=== PATIENT | female | born 1955 | race Caucasian/White ===

== ENCOUNTER → 2017-10-11 08:45 | Outpatient (CLI) | payer MEDICARE, MEDICAID, SELFPAY | PROVIDERS: Family Provider Internal Medicine; PCP Internal Medicine; Visit Provider Clinical Nurse Specialist | DX: I47.1 Supraventricular tachycardia (principal); R42 Dizziness and giddiness | CPT/HCPCS: 93225; 93226 ==

== ENCOUNTER → 2017-10-26 08:48 | Outpatient (CLI) | payer MEDICARE, SELFPAY ==
--- NOTE | 2017-10-26 08:50 | ECHOD_ITS ---
Reason For Study: SVT Procedure This was a 2D Doppler, Color Flow transthoracic echocardiogram. Exam performed in department. Left Ventricle Normal LV size. Left ventricular systolic function is normal. The estimated ejection fraction is 60 %. No evidence for diastolic dysfunction. No regional wall motion abnormalities noted. Right Ventricle Normal RV size. Normal systolic function. Atria Normal left atrium. Normal right atrium. Mitral Valve Normal mitral valve. Tricuspid Valve Normal tricuspid valve. Mild (1+) tricuspid valve insufficiency. Pulmonary artery systolic pressure is 26 mmHg. Aortic Valve Normal aortic valve. Trisinus/trileaflet aortic valve. Pulmonic Valve Normal pulmonic valve. Great Vessels Normal aortic root. The pulmonary artery is normal size. Normal inferior vena cava. Pericardium/Pleural No pericardial effusion. MMode/2D Measurements & Calculations LVIDd: 4.9 cm IVSd: 0.86 cm Ao root diam: 2.4 cm LVIDs: 3.1 cm LVPWd: 0.83 cm LA dimension: 3.6 cm RVDd: 2.2 cm FS: 36.8 % LAV(MOD-bp): 36.0 ml LA A4 area: 13.9 cm2 RA A4 area: 9.0 cm2 LAV(MOD-bp) Indexed: 18.2 ml/m2 LAV(MOD-sp2): 39.3 ml LAV(MOD-sp4): 33.3 ml Doppler Measurements & Calculations MV E max ulises: 104.6 cm/sec Lat Peak E' Ulises: 7.9 cm/sec Med Peak E' Ulises: 8.1 cm/sec MV A max ulises: 89.2 cm/sec E/E' lat: 13.3 E/E' med: 12.9 MV E/A: 1.2 Ao V2 max: 124.1 cm/sec LV V1 max: 110.6 cm/sec PA V2 max: 91.3 cm/sec Ao max P.2 mmHg LV V1 max P.9 mmHg Ao V2 mean: 84.2 cm/sec Ao mean P.2 mmHg Ao V2 VTI: 28.8 cm TR max ulises: 232.4 cm/sec TR max P.6 mmHg Interpretation Summary Normal LV size. Left ventricular systolic function is normal. The estimated ejection fraction is 60 %. No evidence for diastolic dysfunction. Ordering Physician: Michelle Hansen Referring Physician: Simi Grant Performed By: Sharda Greenfield, KIAH, RVT
== END ==
PROVIDERS: Family Provider Internal Medicine; PCP Internal Medicine; Visit Provider Clinical Nurse Specialist
DX: I47.1 Supraventricular tachycardia (principal); I38 Endocarditis, valve unspecified
CPT/HCPCS: 93306

== ENCOUNTER → 2017-12-20 10:13 | Outpatient (CLI) | payer MEDICARE, SELFPAY ==
--- NOTE | 2017-12-20 10:15 | RAD_ITS ---
STUDY: X-RAY - RIGHT KNEE REASON FOR EXAM: Bilateral knee pain. TECHNIQUE: 4 view(s) of the knee. COMPARISON: Radiographs 10/12/2015. FINDINGS: Normal visualized distal femur. Normal visualized proximal tibia and fibula. Normal proximal tibiofibular articulation. There are marginal osteophytes and joint space loss of the medial femorotibial compartment, increased since the prior study. There are small marginal osteophytes without joint space loss of the lateral femorotibial compartment. There are small marginal osteophytes and joint space narrowing of the patellofemoral articulation. There is mild lateral subluxation of the patella. There is a small joint effusion. RAD/Knee 4 or More Views IMPRESSION: Arthrosis of the medial femorotibial and patellofemoral compartments. Small joint effusion. Electronically Signed: Bebo Martinez MD at 15:10 EDT Tel , Service support ,
--- NOTE | 2017-12-20 10:15 | RAD_ITS ---
STUDY: X-RAY - LEFT KNEE REASON FOR EXAM: Bilateral knee pain. TECHNIQUE: 4 view(s) of the knee. COMPARISON: Radiographs 09/08/2014. FINDINGS: Normal visualized distal femur. Normal visualized proximal tibia and fibula. Normal proximal tibiofibular articulation. There are marginal osteophytes and joint space loss of the medial femorotibial compartment. Normal lateral femorotibial compartment. There are small marginal osteophytes with joint space narrowing of the patellofemoral articulation. There is a small joint effusion. RAD/Knee 4 or More Views IMPRESSION: Arthrosis of the medial femorotibial and patellofemoral compartments as on the prior study. Small joint effusion. Electronically Signed: Bebo Martinez MD at 14:41 EDT Tel , Service support ,
== END ==
PROVIDERS: Family Provider Internal Medicine; PCP Internal Medicine; Visit Provider Orthopaedic Surgery
DX: M25.561 Pain in right knee (principal); M25.562 Pain in left knee
CPT/HCPCS: 73564

== ENCOUNTER 2019-08-16 09:46 | Emergency (ER) | payer MEDICARE, SELFPAY ==
[2019-08-16 09:48] VITALS: BP 134/79; PULSE 74; RESP 17; TEMP 36.3; O2SAT 95; BMI 33.7
--- NOTE | 2019-08-16 10:05 | EKG12_ITS ---
Test Reason : PALPS Blood Pressure : / mmHG Vent. Rate : 064 BPM Atrial Rate : 064 BPM P-R Int : 174 ms QRS Dur : 084 ms QT Int : 406 ms P-R-T Axes : 069 012 032 degrees QTc Int : 418 ms Normal sinus rhythm Normal ECG Confirmed by DENILSON MURCIA, NIKOLAY ([id number]), acquisitions editor CHIARA WILLIAMSON ([id number]) on 08/18/2019 10:00:29 AM Referred By: TL Confirmed By:NIKOLAY OREILLY MD
--- NOTE | 2019-08-16 10:07 | ED.DCSUM_ITS ---
- ER Visit Summary Date of Service: 08/16/19 Chief Complaint: Head feels stuffy, palpitations History of Present Illness: The patient is a 64 F who tells me that her head feels stuffy. This started this morning. She cannot really quantify or describe this any further. She has had no sinus drainage or sore throat. No fevers. She did have some palpitations this morning. When this was happening she took her heart rate and it was 80. No chest pain or shortness of breath. She has a history of SVT and takes 25 mg of metoprolol at home. She did take this dose this morning. She denies any other symptoms. Physical Examination: Vital signs reviewed. HEENT exam unremarkable. Heart is regular rate and rhythm without murmurs. Lungs are clear to auscultation. Abdomen is soft and nontender. Extremities reveal no edema. Peripheral pulses are equal. Skin exam normal. Neurologic exam normal. Test Results: EKG is sinus rhythm with rate of 64. No ST changes. Labs are unremarkable except for chloride of 109 Emergency Department Course and Treatment: The patient's personnel monitor revealed a sinus rhythm. No signs of ectopy. No tachycardia. I am unclear as to why she is having this head congestion and stuffiness. I will give her Mucinex D to see if this will help. She will monitor her heart rate at home. She will continue her metoprolol. Follow-up with Treatment Plan: [] Disposition: Discharge Impression: Palpitations, head congestion This note was generated with Branch dictation software. It may contain incorrect words, spelling, and punctuation that were not noted in review of the chart prior to signing ED Disposition - Plan for ED Patient: Referrals: Simi Grant MD [Primary Care Provider] -
[2019-08-16 10:53] LABS: Absolute Lymphocyte Count 1.26 X10^3/uL (0.83-4.51); Absolute Neutrophil Count 3.4 X10^3/uL (2.0-7.7); Basophil# 0.04 X10^3/uL; Basophil% 0.7 % (0-1); Eosinophil# 0.15 X10^3/uL; Eosinophils% 2.8 % (0-5); Hematocrit 43.3 % (37-47); Hemoglobin 13.6 g/dL (12.0-15.0); Lymphocyte # 1.26 X10^3/ul (4.0); Lymphocyte % 23.6 % (19-41); Mean Corp Hgb Conc 31.4 g/dL (32-36); Mean Corpuscular Hgb 29.1 pg (27.0-32.0); Mean Corpuscular Volume 92.7 fL (81-99); Mean Platelet Vol. 11.3 fl (6.2-12.0); Monocyte# 0.49 X10^3/uL; Monocyte% 9.2 % (0-10); NRBC Flagged by Analyzer 0 % (0-5); Neutrophil # 3.38 X10^3/uL (2.7-7.7); Neutrophil % 63.3 % (47-70); Platelet Count 205 K/mm3 (150-450); RBC Distribution Width CV 13.2 % (11.6-14.6); RBC Distribution Width SD 44.9 fl (35.1-43.9); Red Blood Count 4.67 M/mm3 (4.2-5.4); White Blood Count 5.3 K/mm3 (4.4-11.0)
[2019-08-16 11:09] LABS: Anion Gap 7 (5-15); BUN 15 mg/dL (7-18); BUN/Creat Ratio 22.1 RATIO (10-20); Calcium,Total 9.5 mg/dL (8.5-10.1); Chloride 109 mmol/L (98-107); Creatinine, Serum 0.68 mg/dL (0.55-1.02); EST Glomerular Filtration Rate 93 mL/min (>60); Est Glom Filt Rate - Afr Amer 113 mL/min (>60); Estimated Creatinine Clearance 77.19 ml/min; Glucose 95 mg/dL (74-106); Potassium 4.1 mmol/L (3.5-5.1); Sodium Level 143 mmol/L (136-145)
--- NOTE | 2019-08-16 11:12 | DCINST.ED_ITS ---
ED Disposition - Plan for ED Patient: Disposition: Home or Assisted Living Instructions: Palpitations Prescriptions: Guaifenesin/Pseudoephedrne HCl [Guaifenesin-Pse ER 600-60 mg] 1 ea PO BID #14 tab.er.12h Transmission Status: Pending to [facility] Referrals: Simi Grant MD [Primary Care Provider] - Additional Instructions: Your prescription was electronically transferred to [facility]
== END 2019-08-16 11:34 | disposition home or self-care (01) ==
PROVIDERS: Emergency Provider Emergency Medicine; Family Provider Internal Medicine; PCP Internal Medicine
DX: R00.2 Palpitations (principal); I47.1 Supraventricular tachycardia; E03.9 Hypothyroidism, unspecified; F32.9 Major depressive disorder, single episode, unspecified; Z79.899 Other long term (current) drug therapy
CPT/HCPCS: 80048; 84484; 85025; 93005; 99284; A4216

== ENCOUNTER 2020-09-13 08:45 | Emergency (ER) | payer MEDICARE, SELFPAY ==
[2020-09-13 08:46] VITALS: BP 148/80; PULSE 80; RESP 18; TEMP 36.4; O2SAT 97; BMI 33.3
[2020-09-13] MEDS: Ketorolac 15 MG/ML Vial IM (09:23)
[2020-09-13] MEDS: cycloBENZAPRine HCl 10 MG Tablet 5 MG PO (09:26)
--- NOTE | 2020-09-13 09:51 | ED.VIS.GEN ---
History of Present Illness Chief Complaint: Back Informant: Patient Narrative: 65-year-old female presents with right back and buttock pain. States that she was reaching into the refrigerator yesterday to get some milk and began having pain in her right buttock. States it is aching worse with movement. Denies any numbness or tingling in her lower extremities. Denies any fever, chills, saddle anesthesia, loss of bowel or bladder. Past Medical History - Allergies and Home Meds Allergies/Adverse Reactions: Allergies No Known Allergies Allergy (Verified 09/13/20 08:48) Primary Care Physician: Simi Grant MD [Primary Care Provider] - Prior records reviewed: Yes Past Medical History: - - HTN, hypothyroidism Surgical History: noncontributory Lives: Spouse/ Significant Other Smoking Status: Never smoker Alcohol: None Drugs: None Review of Systems General: Denies: Chills, Fever, Sweats Eyes: Denies: Visual changes - bilaterally, Diplopia ENT: Denies: Rhinorrhea, Sore throat Cardiovascular: Denies: Chest pain, Palpitations Respiratory: Denies: Dyspnea, Cough, Dyspnea on exertion Gastrointestinal: Denies: Abdominal pain, Nausea, Vomiting, Diarrhea, Melena, Hematochezia Genitourinary: Denies: Dysuria, Hematuria, Frequency Musculoskeletal: Reports: Back pain. Denies: Extremity Pain Skin: Denies: Rash, Wounds Neurological: Denies: Headache, Weakness, Numbness Physical Exam Vital Signs/Narrative: Vital Signs Temp Pulse Resp BP Pulse Ox 09/13/20 08:46 97.6 F L 80 18 148/80 H 97 Inital Vital Signs reviewed: Yes General: Well nourished, Well developed, No Acute Distress Head: Normocephalic, Atraumatic Eyes: Perrl, EOMI ENT: Moist mucous membranes, No rhinorrhea Neck: Supple, Nontender Cardiovascular: Regular rate, Regular rhythm, No murmurs Respiratory: No distress, CTA bilaterally, Chest nontender Abdomen: Soft, Nontender, Nondistended, Normal bowel sounds Back: Nontender, Normal Inspection Extremities: No edema, - - TTP over the right piriformis. Full range of motion at the hip as well as knee. No overlying skin changes. Skin: Normal color, No rash Neurological: Alert, Oriented x3, Cranial nerves II-XII grossly intact, Normal Strength, Normal Sensation Psychological: Normal affect, Normal Mood Diagnostic/Tx/Re-eval - Medical Decision Making Appears well and nontoxic. Vital signs within normal limits. Patient has sciatica. Was given muscle relaxer as well as intramuscular Toradol. Patient had improvement of her symptoms during her stay. She will be given Flexeril for home as well as Naprosyn. Asked to return with new or worsening symptoms. Patient agreeable and stable at time of discharge. Impression: 1. Right sciatica ED Disposition - Plan for ED Patient: Disposition: Home or Assisted Living Instructions: ED Sciatica Prescriptions: cycloBENZAPRine HCl [Flexeril] 5 mg PO TID PRN #5 tab PRN Reason: Muscle Spasm Prescription Printed Naproxen [Naprosyn] 500 mg PO BID #14 tab Prescription Printed Referrals: Simi Grant MD [Primary Care Provider] - 2 Days
[2020-09-13 10:00] VITALS: PULSE 81; RESP 18; O2SAT 99
--- NOTE | 2020-09-13 10:01 | ED.RN ---
THIS NURSE REVIEWED D/C INSTRUCTIONS WITH PT. PT VERBALIZED UNDERSTANDING OF INSTRUCTIONS. PT DENIES FURTHER NEEDS OR QUESTIONS AT THIS TIME. PT AMBULATES FROM ROOM ON OWN WITHOUT ASSISTANCE FROM STAFF
== END 2020-09-13 10:01 | disposition home or self-care (01) ==
PROVIDERS: Emergency Provider Emergency Medicine; PCP Internal Medicine
DX: M54.31 Sciatica, right side (principal); I10 Essential (primary) hypertension; E03.9 Hypothyroidism, unspecified; Z79.899 Other long term (current) drug therapy
CPT/HCPCS: 96372; 99283

== ENCOUNTER 2020-10-19 14:11 | Outpatient (RCR) | payer MEDICARE, SELFPAY ==
[2020-10-19] MEDS: COVID-19 VACC, MRNA(PFIZER)/PF 30 MCG/0.3 ML SYRINGE IM (08:24)
[2020-11-09] MEDS: COVID-19 VACC, MRNA(PFIZER)/PF 30 MCG/0.3 ML SYRINGE IM (08:21)
== END 2021-01-11 23:59 ==
LOC: IMMUN 14:11
PROVIDERS: PCP Internal Medicine; Visit Provider Family Medicine
DX: Z23 Encounter for immunization (principal)
CPT/HCPCS: 0001A; 0002A; 91300

== ENCOUNTER 2021-10-25 11:59 | Observation (INO) | payer MEDICARE, SELFPAY ==
--- NOTE | 2021-10-13 08:37 | EKG12_ITS ---
Test Reason : PRE OP Blood Pressure : / mmHG Vent. Rate : 069 BPM Atrial Rate : 069 BPM P-R Int : 180 ms QRS Dur : 070 ms QT Int : 382 ms P-R-T Axes : 083 067 073 degrees QTc Int : 409 ms Normal sinus rhythm Normal ECG Confirmed by DAYDAY MURCIA, CHRISTOPHE ([id number]), scientific editor CHIARA WILLIAMSON ([id number]) on 10/14/2021 7:51:20 AM Referred By: Josep Lim Confirmed By:CHRISTOPHE NAYLOR MD
[2021-10-13 09:12] LABS: Absolute Lymphocyte Count 1.16 X10^3/uL (0.83-4.51); Absolute Neutrophil Count 3.2 X10^3/uL (2.0-7.7); Basophil# 0.05 X10^3/uL; Eosinophil# 0.11 X10^3/uL; Eosinophils% 2.2 % (0-5); Hematocrit 44.4 % (37-47); Hemoglobin 14.8 g/dL (12.0-15.0); Lymphocyte # 1.16 X10^3/ul (0.83-4.51); Lymphocyte % 23.7 % (19-41); Mean Corp Hgb Conc 33.3 g/dL (32-36); Mean Corpuscular Hgb 30.8 pg (27.0-32.0); Mean Corpuscular Volume 92.5 fL (81-99); Mean Platelet Vol. 11.4 fl (6.2-12.0); Monocyte# 0.37 X10^3/uL; Monocyte% 7.6 % (0-10); NRBC Flagged by Analyzer 0 % (0-5); Neutrophil # 3.19 X10^3/uL (2.7-7.7); Neutrophil % 65.3 % (47-70); Platelet Count 245 K/mm3 (150-450); RBC Distribution Width CV 13.1 % (11.6-14.6); RBC Distribution Width SD 44.5 fl (35.1-43.9); White Blood Count 4.9 K/mm3 (4.4-11.0)
[2021-10-13 09:34] LABS: Anion Gap 4 (5-15); BUN 16 mg/dL (7-18); BUN/Creat Ratio 23.1 RATIO (10-20); Calcium,Total 9.1 mg/dL (8.5-10.1); Chloride 107 mmol/L (98-107); Creatinine, Serum 0.69 mg/dL (0.55-1.02); EST Glomerular Filtration Rate 90 mL/min (>60); Est Glom Filt Rate - Afr Amer 109 mL/min (>60); Glucose 112 mg/dL (74-106); Potassium 4.1 mmol/L (3.5-5.1); Sodium Level 139 mmol/L (136-145)
[2021-10-13 09:43] LABS: International Normalized Ratio 1.1; Prothrombin Time (Protime)PT. 13.2 SECONDS (11.7-14.9)
[2021-10-13 09:44] LABS: Partial Thromboplast Time 31.6 Seconds (24.1-36.2)
[2021-10-13 09:48] LABS: Magnesium 1.9 mg/dL (1.6-2.6); Thyroid Stim Hormone (TSH) 2.25 uIU/mL (0.358-3.74)
[2021-10-14 13:41] LABS: Fructosamine 233 umol/L (0-285)
[2021-10-25] VITALS (10 sets, daily range): BP systolic 98–143; BP diastolic 51–82; PULSE 62–82; RESP 16–18; TEMP 36.2–36.7; O2SAT 97–100; BMI 33.0
[2021-10-25] MEDS: Lactated Ringers 1,000 ML 125 ML IV ×3 (06:45→14:28)
[2021-10-25] MEDS: Scopolamine 1mg/72hr Patch 1 PATCH TD (06:46)
[2021-10-25] MEDS: Celecoxib 200 MG Capsule 400 MG PO (06:47)
[2021-10-25] MEDS: Acetaminophen 500 MG Tablet 1000 MG PO ×3 (06:47→21:41)
[2021-10-25] MEDS: Gabapentin 600 MG Tablet PO (06:47)
[2021-10-25 07:06] LABS: Bedside Glucose 78 mg/dL (74-106)
--- NOTE | 2021-10-25 07:12 | HP.PCM_ITS ---
History and Physical Date of Admission: 10/25/21 Date of Service: 09/26/21 MR#:[id number]: YULIANA GAGE #:[id number]:[id number] Provider:Dr. Josep Lim DOAge/Sex: 66/F [facility]:Signed Intake Vital Signs 09/26/21 10:19 Height 5 ft 5 in Weight: 203 lb BMI 33.7 Intake Visit Reasons: Bilat knees Allergies nickel Allergy (Severe, Verified 09/26/21 10:15) swelling, hives, rash Medications citalopram 10 mg PO DAILY 09/09/14 [History Confirmed 09/26/21] levothyroxine 50 mcg PO DAILY 09/09/14 [History Confirmed 09/26/21] metoprolol succinate 25 mg PO DAILY 09/09/14 [History Confirmed 09/26/21] cholecalciferol (vitamin D3) 2,000 unit PO DAILY 08/16/19 [History Confirmed 0 09/26/21] cyclosporine 1 ea OP BID 08/16/19 [History Confirmed 09/26/21] naproxen sodium 220 mg capsule 220 mg PO BID 09/26/21 [History Confirmed 09/26/21] trazodone 50 mg tablet 50 mg PO tab 09/26/21 [History Confirmed 09/26/21] zinc sulfate-vitamin C 200 mg-100 mg tablet tab PO 09/26/21 [History Confirmed 09/26/21] [facility] Medical History (Updated 09/26/21 @ 11:[address] Josep Lim DO) History of tachycardia HTN (hypertension) Surgical History (Updated 09/26/21 @ 10:21 by Ayala Saleem) History of arthroscopy of both knees Hx of hysterectomy Hx of tonsillectomy Hx of vein stripping Family History (Updated 09/26/21 @ 10:22 by Ayala Saelem) Sister Cancer Father Diabetes Myocardial infarction Brother Heart disease Social History (Updated 09/26/21 @ 10:21 by Ayala Saleem) Smoking Status: Never smoker alcohol intake: never HPI Bilat knees Details: Parts of this documentation were recorded by a scribe, this documentation accurately reflects the service provided and the decisions made by me, Dr. Josep Lim DO 09/26/21 0748Vladimir GAGE is a 66 year old F NEW patient here today for BL knee pain that she has been having since 2012 and the pain has worsened. SHe had TKA scheduled last year at [facility] but this was canceled d/t her husbands health and his passing. SHe states that she wishes to disscuss surgery today. She has had knee arthroscopies in 2012 and 2015, dr. harris preformed one and the Dr. Bolanos preformed the other. She feels that her left knee is worse than the right knee. She states that her pain is increased with ascending stairs. She has anterior achiness and she feels that just below her knee cap there is a thigh feeling like it will snap. Denies numbness, tingling or other associated symptoms. She has many injections in her BL Knees including visco injections and steroid injections. Her last injection were in [address] Harris. She has had PT in the past. Patient states that she does have BL lower extremity brown lesions which the tailings man told her was from Zhaopin. SHe has a nickel allergy and the tailings man told her many years ago it was the worst allergy they have ever seen. Ortho Exam General General: Yes no acute distress Neurologic: Yes alert and Yes oriented x3 Psychologic: Yes reasonable and appropriate Right Knee Skin/Wound: No erythema, No ecchymosis and No swelling Homans Sign: No Knee ROM: Yes ROM-Extension -20 to 0 and No ROM-Flexion 0-140 (118) Examination: Yes Med jt line tenderness, Yes Lat jt line tenderness and Yes Crepitus Stability: NML: Anterior Drawer, NML: Posterior Drawer, NML: Valgus 30 and NML: Varus 30 Patella Translation: 1 Apprehension with Lateral Translation: No Patella Grind: Yes KNEE: no joint effusion 8mm circular brown lession on BL legs Left Knee Skin/Wound: No ecchymosis, No erythema and No swelling Homans Sign: No Knee ROM: Yes ROM-Extension -20 to 0 and No ROM-Flexion 0-140 (118) Examination: Yes med jt line tenderness, Yes Lat jt line tenderness and Yes Crepitus Stability: NML: Anterior Drawer, NML: Posterior Drawer, NML: Valgus 30 and NML: Varus 30 Patella Translation: 1 Patella Grind: Yes KNEE: no patellar instability no joint effusion Supplemental Info 09/26/2021 x-ray left knee: Advanced patellofemoral arthrosis ,moderate to severe medial joint space narrowing with large bone spurs medial and lateral compartment 09/27/2021 x-ray right knee:Advanced patellofemoral arthrosis ,moderate to severe medial joint space narrowing with large bone spurs medial and lateral compartment Coding Level of Care Code Off vis,new,level 3 Diagnoses Right knee DJD M17.11 Osteoarthritis type: primary Degenerative joint disease of knee, left M17.12 Osteoarthritis type: primary Nickel allergy Z91.09 Assessment and Plan Assessment and Plan (1) Right knee DJD: Status: Acute Qualifiers: Osteoarthritis type: primary Qualified Code(s): M17.11 - Unilateral primary osteoarthritis, right knee (2) Degenerative joint disease of knee, left: Status: Acute Qualifiers: Osteoarthritis type: primary Qualified Code(s): M17.12 - Unilateral primary osteoarthritis, left knee (3) Nickel allergy: Status: Acute Plan - Dr. Josep Lim, DO: Obtained X-rays of patient's BL knee. Personally reviewed x-rays. There is no obvious fracture, dislocation, or lucency noted. Patient educated that she has significant OA of the BL knees. history of Severe nickel allergy. Educated that the [place] knee is a titanium allow with trace nicikle . Educated that studies show the [place] knee vs holloway and nephew implant without nickel shows that there is no increased risk to revision, however she feels more comfortable with the holloway nephew selin free knee. Educated that if she wishes to use the holloway and nephew implant there can be a different feel to the knee and the robot would not be an option. She wishes to have the holloway and nephew implant d/t the risk of allergy. Risks, benefits and alternatives of surgery reviewed including but not limited to bleeding, infection, nerve, artery and/or tissue damage, fracture, VTE, mechanical feel of the knee, continued pain, stiffness and expected post-operative course. She will be walking right after surgery, will have a walker then progress to a cane. She can take up to 2 years to fully recover but she should be happy she had the replacement at 3 months post op. Since she does live along it is recommended that she stays the night for safely concerns. She wishes to proceed with left total knee arthroplasty with the Holloway and Nephew implant. WIshes to have surgery 10/25/2021. We did discuss CHON steiner and she does wish to proceed with that as well. Follow up in or sooner if pain, swelling, numbness or associated symptoms, or concerns develop. All questions answered. Patient in agreement of plan. Plan Details Other Orders: Orders: Knee 4 or More Views Today M25.561, M25.562 Knee 4 or More Views Today M25.561, M25.562 09/26/21 1151<Electronically signed by Josep Lim DO>Date Josep Lim DO I have re-examined the patient. There are no clinical changes since date of exam
--- NOTE | 2021-10-25 08:30 | CYST_PTH ---
PATIENT: YULIANA GAGE LOC: MS3 U#:[id number] AGE/SX: 66/F ROOM: AR315 RE10/25/[address]: Dr. Josep Lim DO : 1955 BED: 1 DIS: 10/26/2021 SPEC #: [id number] RECD: 10/25/21 12:51 STATUS: OSMANY CHLOÉ #: [id number] COREY: 10/25/21 08:[address]: Josep Lim DEPT: SURGICAL PATHOLOGY RECD BY: Ying Jordan ENTERED: 10/25/21 13:31 SP TYPE: Cyst OTHR DR: Dr. Simi Grant MD Tissues: A - CYST B - Knee, NOS Procedures: Decalcification bone/plaque Special Stain Group II Surgery Specimen Level IV Iron Stain (control) HEADER OPERATION: ERAS, total knee replacement PRE-OP DIAGNOSIS: Degenerative joint disease of left knee; primary osteoarthritis left knee TISSUE SUBMITTED: A ? Left knee posterior capsule cyst, B ? Left femoral and tibial bone MICROSCOPIC DIAGNOSIS A. 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 See comment. B. Left femoral and tibial bone, total knee replacement/resection: Pieces of bone with degenerative osteoarthritic changes. SJ:rg 10/28/2021 COMMENT A. No obvious cyst is identified. Iron stain with matched control is used in the evaluation of the specimen and shows iron laden macrophages (siderophages). MICROSCOPIC DESCRIPTION Slides are reviewed. GROSS DESCRIPTION A - Received in fixative is one container labeled with the patient's name and designated left knee posterior capsule cyst. The specimen consists of a lewis-pink cyst measuring 2.8 x 1.5 x 0.7 cm. Sections reveal red-yellowish cut surfaces. No obvious cyst is identified. The entire specimen is submitted in two cassettes. B - Received is one container designated left femoral and tibial bone. The specimen consists of multiple fragments of lewis-yellow bone measuring in aggregate 11 x 11 x 3 cm. No soft tissue is identified. A number of bony fragments contain articular surfaces consistent with tibial plateau and femoral condyle and displaying prominent osteophyte formation, eburnation, and bone erosion. Analysis Lead sections are submitted in one cassette after decalcification. / ELMO:robin 10/25/2021 TC:5 CPT: 51928 x2, 25796, 28707
[2021-10-25] MEDS: Cefazolin 2 GM in 0.9% Normal Saline 100 ML IV (09:44)
[2021-10-25] MEDS: TXA 1000mg in NS100 100ml (IVPB at Incision) 660 MG IV (09:53)
[2021-10-25] MEDS: dexAMETHasone 10 MG/ML Vial IV (10:00)
[2021-10-25] MEDS: Epinephrine (1 mg/ml) 1 MG/ML VIAL (11:10)
[2021-10-25] MEDS: 0.9% Normal Saline (Pres. free 10 ML Vial (11:10)
[2021-10-25] MEDS: Bupivacaine Mpf 0.5% 30 ML VIAL (11:10)
[2021-10-25] MEDS: Betamethasone/Betamethasone 30 MG/5 ML Vial (11:10)
[2021-10-25] MEDS: TXA 1000mg in NS100 100ml (IVPB at Closure) 660 MG IV (11:27)
--- NOTE | 2021-10-25 12:02 | OP.PCM_ITS ---
Report of Operation Date of Procedure: 10/25/21 Description of Surgical Findings:: Preoperative diagnosis: Left knee DJD + nickel allergy Postoperative diagnosis: Same Procedure: Left total knee arthroplasty Implant: [employer]hew Oxinium knee journey 2 CR femur size 3 tibial baseplate size 3 left polyethylene size 9 mm CR patella 35 mm symmetric Anesthesia: Spinal with adductor canal block Tourniquet time: 59 minutes total at 300 mmHg 46 minutes up down for a period of time and then back up for the remainder during cementing Complications: None Condition: Stable to PACU Estimated blood loss: 200 cc Indication for procedure: This is a 66-year-old female with long standing degenerative joint disease of the knee who has failed conservative treatment and wished to proceed with elective total knee arthroplasty. Risk benefits and alternatives were reviewed including; risk of bleeding, infection, nerve artery and tissue damage, continued pain, postoperative stiffness, venous thromboembolism, need for postoperative rehabilitation, mechanical feel to the knee, and expected postoperative course. 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 The operative extremity was identified by both patient and physician and was marked. Patient was met by anesthesia. An adductor canal block was placed by anesthesia postoperatively the patient was brought back to the operating room on a wheeled cart and transferred to the operating table in the supine position. Anesthesia was started. A well-padded tourniquet was placed on the operative extremity. The patient was prepped and draped in the usual sterile fashion. A timeout was called to ensure the proper patient procedure and extremity were being contemplated. An Esmarch was used to exsanguinate the extremity. The tourniquet was inflated. A 10 blade scalpel was used to make a midline incision down through the skin and subcutaneous tissue. Skin retractors placed. Bovie was used to perform meticulous hemostasis. full-thickness flaps were elevated medial and lateral along the joint capsule. A deep blade scalpel was used to perform a medial parapatellar arthrotomy. The knee was brought to full extension. A Bovie was used to release the soft tissues off the most proximal aspect of the medial tibial plateau a three-quarter inch curved osteotome was also used for this process. The infrapatellar fat pad was excised. The fat pad was excised partially anterior lateral portion the anterior medial was elevated from the femur. the patella was everted. The knee was brought into flexion. An intramedullary drill was used followed by flexible intramedullary guide paulo. The distal femoral cutting block was placed and set to remove 10 mm of bone and 5 degrees of valgus. The block was secured with pins and an oscillating saw was used to complete the distal femoral cut. During this, and all bony cuts retractors were used to protect the collateral ligaments. At this point a femoral sizer was used to measure the AP dimension of the femur. The sizer block was pinned parallel to the epicondylar access for external rotation. The sizing block was removed and the appropriately sized 4-in-1 cutting block was placed over the previously made pinholes. It was checked with an padilla wing and the block was secured with pins. An oscillating saw was used to complete the chamfer cut anteriorly followed by the anterior cut anterior cut followed by the posterior cut followed by the posterior chamfer cut followed by the anterior chamfer cut. The block was removed as well as the fragments. A ronguer was used to remove excess osteophytes. Her intramedullary canal was very anterior and was partially exposed superiorly on the anterior femur. the medial and lateral meniscus were excised as well as the ACL. There was noted to be a cyst in the posterior medial capsule which was excised and sent for pathology at this point a PCL retractor was placed and an intramedullary drill was passed down the tibial canal followed by a solid intramedullary guide paulo. The tibial cutting block was attached and set to remove 9 mm of bone from the high side. This was checked with an external alignment drop paulo for slope and tilt. It was pinned into place. An oscillating saw was used to complete the tibial plateau cut and the block was removed. A large osteotome was used to elevate the fragment and a Meng and a Bovie were used to free the fragment from the surrounding soft tissue. A rongeur was once again used to remove osteophytes a lamina long filler cigar roller machine was used to evaluate the posterior capsular structures. A three-quarter inch curved osteotome was used to remove posterior osteophytes. A spacer block was inserted in both extension and flexion to ensure adequate spacing. Trials were inserted full extension and flexion were achieved in varus and valgus stability throughout range of motion were seen, balancing techniques were performed. At this point the attention was turned towards the patella. A caliper was used to ensure sufficient bone stock to remove 10 mm of bone. A reamer was used to perform this task. Lug holes were made for the appropriate-sized patella. The patella trial was inserted and there was good patellar tracking with knee range of motion. The tibial baseplate was allowed to float into rotation and was marked on the tibial plateau with a Bovie. Lug holes were made in the femur and trials were removed. The tibial baseplate was then sized and its preparation was completed with a fin punch. The knee was thoroughly irrigated. A posterior capsular injection was performed with our standard cocktail. The knee was brought into flexion and irrigated again. The tibial baseplate was cemented. Excess cement was removed with curettes. The polyethylene component was inserted. The femoral component was cemented. The knee was brought into full extension and placed on a bump. The patellar component was cemented. At this point a Betadine rinse was placed and thoroughly irrigated after a few minutes. This was followed by an Iricept rinse which was allowed to sit for 1 minute and then thoroughly irrigated.At this point all gloves were changed. The knee was thoroughly irrigated the joint capsule was closed with #1 Ethibond. Tourniquet was let down followed by 0 Vicryl and 2-0 Vicryl in the subcutaneous tissues. followed by brook in the skin. Dressing was applied in the form of Mepilex silver dressing web roll and an Lalo wrap from the foot to the groin. The patient tolerated the procedure well, all counts were correct patient was brought back to the PACU in stable condition.
--- NOTE | 2021-10-25 12:40 | RAD_ITS ---
STUDY: X-RAY - LEFT KNEE REASON FOR EXAM: Female, 66 years old. Post op -- AP and Lateral xray of operative knee in PACU TECHNIQUE: 2 view(s) of the knee. COMPARISON: Comparison is made with prior study dated 09/26/2021. FINDINGS: Normal visualized distal femur. Normal visualized proximal tibia and fibula. Normal proximal tibiofibular articulation. The patient is status post total knee replacement. There is good alignment. Postoperative soft tissue changes. RAD/Knee 1 or 2 Views IMPRESSION: Status post total knee replacement. There is good alignment. Postoperative soft tissue changes. Electronically Signed: Dylan Hammond MD at 12:57 EDT ,
[2021-10-25] MEDS: Cefazolin 1 GM/50 ML BAG IV ×2 (14:20→21:30)
[2021-10-25] MEDS: Senna/Docusate Sodium 1 Tablet 2 TABLET PO (21:30)
[2021-10-25] MEDS: Lactated Ringers 1,000 ML 15 ML IV (23:00)
[2021-10-26 01:27] VITALS: BP 122/69; PULSE 75; RESP 16; TEMP 36.7; O2SAT 94
[2021-10-26 05:27] VITALS: BP 105/65; PULSE 71; RESP 16; TEMP 36.6; O2SAT 97
[2021-10-26] MEDS: Cefazolin 1 GM/50 ML BAG IV (05:42)
[2021-10-26] MEDS: Acetaminophen 500 MG Tablet 1000 MG PO (05:43)
[2021-10-26] MEDS: Levothyroxine 50 MCG Tablet PO (05:44)
[2021-10-26] MEDS: APIXABAN 2.5 MG TABLET PO (05:44)
[2021-10-26] MEDS: 0.9% Saline Lock 10 ML Syringe IV (05:46)
[2021-10-26 06:14] LABS: Hemoglobin 11.5 g/dL (12.0-15.0); Mean Corp Hgb Conc 32.9 g/dL (32-36); Mean Corpuscular Hgb 30.7 pg (27.0-32.0); Mean Corpuscular Volume 93.3 fL (81-99); Mean Platelet Vol. 12.4 fl (6.2-12.0); Platelet Count 226 K/mm3 (150-450); RBC Distribution Width SD 44.5 fl (35.1-43.9); Red Blood Count 3.75 M/mm3 (4.2-5.4)
[2021-10-26 06:45] LABS: Anion Gap 3 (5-15); BUN 11 mg/dL (7-18); BUN/Creat Ratio 19.1 RATIO (10-20); Calcium,Total 8.8 mg/dL (8.5-10.1); Chloride 110 mmol/L (98-107); Creatinine, Serum 0.58 mg/dL (0.55-1.02); EST Glomerular Filtration Rate 112 mL/min (>60); Est Glom Filt Rate - Afr Amer 136 mL/min (>60); Estimated Creatinine Clearance 88.18 ml/min; Glucose 132 mg/dL (74-106); Potassium 4.2 mmol/L (3.5-5.1); Sodium Level 140 mmol/L (136-145)
[2021-10-26 07:19] VITALS: BP 113/59; PULSE 66; RESP 16; TEMP 36.8; O2SAT 97
--- NOTE | 2021-10-26 07:21 | PCM.PN.ORT ---
Subjective Subjective Seen and examined doing well pain controlled did have nausea lightheadedness yesterday but resolved today no other complaints Objective Data Objective Data Vital Signs: Vital Signs Temp Pulse Resp BP Pulse Ox 97.9 F 71 16 105/65 97 10/26/21 05:27 10/26/21 05:27 10/26/21 05:27 10/26/21 05:27 10/26/21 05:27 Oxygen Flow Rate (L/min) 4 Oxygen Delivery Method Room Air Weight: 201 lb 15.095 oz Body Mass Index (BMI) 33.0 Intake & Output: Intake and Output for Last 24 Hours 10/24/21 10/25/21 10/26/21 23:59 23:59 23:59 Intake Total 4035.5 / 4035.5 50 / 50 Output Total 600 / 600 Balance 3435.5 / 3435.5 50 / 50 Lab / Micro Data Result Diagrams: 10/26/21 05:19 10/26/21 05:19 Labs: Laboratory Results - last 24 hr 10/26/21 05:19: WBC 13.0 H, RBC 3.75 L, Hgb 11.5 L, Hct 35.0 L, MCV 93.3, MCH 30.7, MCHC 32.9, RDW Std Deviation 44.5 H, RDW Coeff of Clarence 13.0, Plt Count 226, MPV 12.4 H 10/26/21 05:19: Sodium 140, Potassium 4.2, Chloride 110 H, Carbon Dioxide 27.0, Anion Gap 3 L, BUN 11, Creatinine 0.58, Estim Creat Clear Calc 88.18, Est GFR (MDRD) Af Amer 136, Est GFR (MDRD) Non-Af 112, BUN/Creatinine Ratio 19.1, Glucose 132 H, Calcium 8.8 Micro: Microbiology 10/24/21 09:40 Interface Orders SARS-CoV-2 Antigen (Rapid) - Final 10/13/21 08:49 Swab (Method) Nasal Screen MRSA/MSSA - Final Radiography Diagnostic Testing: Radiology Impression Knee X-Ray 10/25/21 12:40 IMPRESSION: Status post total knee replacement. There is good alignment. Postoperative soft tissue changes. Electronically Signed: Dylan Hammond MD at 12:57 EDT , Physical Exam Const alert and oriented x3 General Appearance: cooperative Extremity Extremity Narrative: Left lower extremity dressing clean dry intact compartments soft neurovascular intact Assessment & Plan Assessment/Plan (1) Orthopedic aftercare: PLAN: Postop day #1 left total knee arthroplasty PT OT weightbearing as tolerated Patient doing better this morning will discharge home after a.m. physical therapy if continues to do well. Eliquis 2.5 mg twice daily for 2 weeks Tylenol oxycodone for pain Encourage knee range of motion Follow-up in 2 weeks Begin shower 72 hours postop
--- NOTE | 2021-10-26 07:23 | EX.PCM.DISCH ---
Discharge Instructions Diet Discharge Diet: No restrictions Activity Weight Bearing Status: Weight bearing as tolerated Dressing / Incision Additional Dressing/Incision Instructions:: Ice and elevate one week while not ambulating. Ambulation is encouraged. Weightbearing as tolerated. Use assistive devise for stability. Encourage FULL knee extension and flexion 1 time EVERY time you get up and down and MULTIPLE times per day. No showering 72 hours after surgery. Begin showering postop day #3. Remove the dressing prior to shower and gently wash with warm water and antibacterial soap then pat dry and place abdominal pad (or plain gauze) and KETAN hose over top. This is to be done daily. Do not submerge for 3 weeks. If not showering daily after the initial 72 hours then you must clean incision and change dressing daily. Do not allow animals near the incision area. Keep clean. Follow anticoagulation recommendations as prescribed. Do not take any NSAIDs while on blood thinner. Do not take any additional narcotic pain medication other than what was prescribed on your surgery day without discussing with physician. Narcotic medication can be addictive. Do not drink alcohol while taking narcotics. Start physical therapy. If you are not currently scheduled for physical therapy or you are unsure of appointment time please call office [facility] to arrange. Call Dr. Lim with any concerns. Follow Up Care Test Results: Test results from this visit will be discussed in further detail at your follow-up appointment, if applicable. Discharge Plan Admission Admit Date/Time: 10/25/21 11:59 Attending Provider: Josep Lim Primary Care Provider: Simi Grant Discharge Orders/Prescriptions Prescriptions: New Eliquis 2.5 mg Tablet 2.5 mg PO BID Qty: 28 RF: 0 oxycodone 5 mg tablet 5 - 10 mg PO Q4H PRN (Reason: pain) 7 Days Qty: 60 RF: 0 acetaminophen [acetaminophen] 500 MG tablet 1,000 mg PO Q6H PRN Qty: 100 RF: 0 Continued citalopram 10 MG tablet 10 mg PO DAILY RF: 0 levothyroxine 50 MCG tablet 50 mcg PO DAILY RF: 0 metoprolol succinate 25 MG tablet 25 mg PO DAILY RF: 0 cyclosporine 1 EACH dropperette 1 ea OP BID RF: 0 cholecalciferol (vitamin D3) 2,000 UNIT tablet 2,000 unit PO DAILY RF: 0 Thera-Tabs Tablet 3 tab PO DAILY RF: 0 Elderberry Zinc Vit C 90-15 mg Lozenge 1 devin PO DAILY RF: 0 Discontinued trazodone 50 mg tablet 50 mg PO PRN PRN (Reason: Sleep) RF: 0 naproxen sodium [Aleve] 220 mg capsule 220 mg PO PRN PRN (Reason: Pain) RF: 0 Referrals / Follow Up: Simi Grant MD [Primary Care Provider] -
[2021-10-26] MEDS: Cholecalciferol (VIT D3) 25 MCG TABLET (1,000 UNITS) 50 MCG PO (07:35)
[2021-10-26 10:35] VITALS: PULSE 66
[2021-10-26] MEDS: Metoprolol(XL)Succ 25 MG Tablet PO (10:35)
--- NOTE | 2021-10-26 10:35 | CASEMGMT ---
RN DAVE CERTIFIED PROCEDURAL CODER CM to room to meet with patient for initial transition planning/care coordination assessment. AMINATA ACOSTA introduced self and role at [facility]. Pt voices understanding and consents to assessment at this time. Pt sitting up in recliner chair in no distress at this time. Pt is A/O at this time and answers all questions appropriately. Care providers, pharmacy, and demographics verified/updated at this time. PCP: Dr Grant Specialists: Dr Lopez Preferred Pharmacy: [facility] Retail Insurance: [facility] Prescription Benefit: Yes Living Will/HPOA: Pt thinks she completed these Apr, 2021, with the mergers and acquisitions attorney after her , but she is insure. She plans to check w/her mergers and acquisitions attorney to inquire about this. LNOK: 2 sons: Peter and Los. Sister, Coleen Prado. Living Arrangements: Lives alone in one-story home w/basement. Washer and dryer are now on 1st floor. 3 steps to enter home. Pt states therapy to work w/her and steps this afternoon. Pt's sister and other family plan to stay w/her over the new few days and through the weekend. After that, a dtr-in-law lives close and plans to check on her daily. Pt was independent w/ADL's and IADL's prior to surgery. Transportation: Pt states drives self and states no transportation concerns at this time. Sister will take her home @ d/c. DME: States has the following DME: shower chair, RTS, cane, grab bars, hand held shower, cane, rollator, walker, conference assistant. Pt does not have a medical alert button. Offered and accepted info of local [employer] that provide medical alert buttons. Pt states no need for further DME at this time. HHC/SNF: No hx of either. Pt states she would like to return home w/HHC x 2 weeks and then plans to go to [facility] after that and plans to utilize [facility] [employer] transportation service. Pt states she already has 1st appt @ [facility] scheduled for November 09. Pt was provided with list of [facility] providers including quality and resource use data and consistent with the patient's preferred geographic region, medical needs, and insurance network. The pt's preferred provider is [facility]. TC to Felicia @ [facility] and referral made via . Msg states that pt is discharging home today. Order placed for HHC: PT/OT. Pt wishes to return home and states has no concerns with going home at time of discharge. CM to follow for any further discharge planning/needs. Pt voices no further concerns/needs at this time. Advised pt to ask for CM if any further questions/concerns/needs arise. Voices understanding. PLAN: Home w/HHC and family support. Myke TIERNEY RN CM
[2021-10-26] MEDS: Senna/Docusate Sodium 1 Tablet 2 TABLET PO (10:36)
--- NOTE | 2021-10-26 11:46 | CASEMGMT ---
Addendum entered by Sisi Cross 10/26/21 12:11: Received notification that [facility] will start tomorrow. Updated dc plan. Pt aware. Original Note: Received tc back from Felicia at [facility], they will plan for SOC on 10/28/2021.
[2021-10-26 13:52] VITALS: BP 109/64; PULSE 85; RESP 16; TEMP 37.1; O2SAT 98
== END 2021-10-26 14:46 | disposition home health service (06) ==
LOC: SDC 13:13 → MS3 13:13
PROVIDERS: Anesthesiology; Admitting Provider Orthopaedic Surgery; PCP Internal Medicine; Referring Provider Orthopaedic Surgery; Visit Provider Orthopaedic Surgery
PROC: (CPT 27447; principal; 2021-10-25 08:05)
DX: M17.0 Bilateral primary osteoarthritis of knee (principal); I10 Essential (primary) hypertension; Z79.899 Other long term (current) drug therapy; E07.9 Disorder of thyroid, unspecified; Z79.890 Hormone replacement therapy; R00.0 Tachycardia, unspecified; Z87.19 Personal history of other diseases of the digestive system; R60.9 Edema, unspecified; Z91.09 Other allergy status, other than to drugs and biological substances; Z87.898 Personal history of other specified conditions; M54.9 Dorsalgia, unspecified
CPT/HCPCS: 27447; 01402; 64447; 36415; 73560; 80048; 82962; 82985; 83735; 84443; 85025; 85027; 85610; 85730; 86850; 86900; 86901; 87081; 87426; 88304; 88305; 88311; 88313; 93005; 96361; 96365; 96366; 97110; 97162; 97166; 97530; 97535; 99218; C1776; C9803; J7120; A4216; G0378; J0702; J3490

== ENCOUNTER → 2021-12-26 | Outpatient (CLI) | payer MEDICARE, SELFPAY ==
--- NOTE | 2021-12-26 13:22 | VDLE_ITS ---
Reason For Study: Swelling Procedure LEFT This is a venous duplex using B-mode, color GSV is normal. flow and spectral Doppler. CFV is compressible, spontaneous, phasic, Exam performed in department. competent, and demonstrates normal A preliminary report was called and/or faxed augmentation. to Rosalee SALCEDO. FV is compressible, spontaneous, phasic, competent and demonstrates normal augmentation. POP V is compressible, spontaneous, phasic, competent and demonstrates normal augmentation. T/P Trunk is compressible. PTV is compressible. LT PerV is compressible. VL/Venous Duplex US, Unilateral Interpretation Summary There is no evidence of left lower extremity deep vein thrombosis. Left great s aphenous vein appears patent and compressible segmentally. Ordering Physician: Rosalee Vazquez Referring Physician: Simi Dominguez Performed By: Sharda Greenfield, KIAH, RVT
== END | disposition home or self-care (01) ==
LOC: CVS 13:15
PROVIDERS: PCP Internal Medicine
DX: M79.662 Pain in left lower leg (principal); Z47.89 Encounter for other orthopedic aftercare
CPT/HCPCS: 93971

== ENCOUNTER 2021-12-28 11:30 | Outpatient (RCR) | payer MEDICARE, SELFPAY ==
--- NOTE | 2021-10-18 09:55 | HP.PTEVAL_ITS ---
Patient's Visit Information YULIANA GAGE is a 66 year old F referred to Physical Therapy by Dr. Josep Lim DO with a diagnosis of prehab L TLR DOS will be 10-25-21. Date of Evaluation: 10/18/21 Physical Therapist: ESTHELA Mccloud - Visit Plan Frequency: 3x /Week Duration: 6 Weeks Plan: Pt goes by [facility]. Re-assess after surgery and set goals. HEP: Bridges, QS, s/l hip abd, standing heel and toe raises, LAQ, SLR - Subjective Pt is having L TKR October 25, [address] Tai is doing the surgery. Pt is going to do home therapy for 2 weeks. She will need the transportation van to get here. She has 3 steps from her kitchen to her back door. She has a railing on those steps. Pt wants HEP to start doing at home before surgery. She has a standard walker at home. Both knees bother her and she is getting her R done after the L. Bed and bath all on one floor. Her laundry has been brought up from the basement. She has food already ready to go. - Pain L knee pain Pain Intensity (Out of 10): 6 - Objective Gait: walks with decrease stance time on the L LE and very stiff L leg with decrease L knee fleixon. Able to heel and toe raise. LE MMT: R knee ext 28.7, R knee flexion 25.8, L knee ext 18.1 and L knee flexion 20. R knee flex 121 degrees and -1 degree from full extension. L knee flexion 121 degrees and -5 degrees from full extension. Girth L knee patella 47.1 and 6 inch suprapatella 60. Stairs: up and down recip with slight hand rail use with increase difficulty to drive through L LE when ascending the step and quickly get off the L knee when descending with the R LE. TU.95 seconds - Balance/Special Test Scores Lower Extremity Functional Score: 47 WOMAC Total Score: 48 WOMAC Percentatge: 50.0000 - Goals Goal 1:: I HEP Goal Time Frame: 4-6 Weeks Goal 2:: Re-eval post surgery and set new appropriate goals Goal Time Frame: 2-4 Weeks - Rehabilitation Potential Rehabilitation Potential: Good - Anticipated Interventions Patient/Client Instruction: Educate patient on: Condition, Plan of Care For the Purpose of:: To decrease pain, To decrease swelling/inflammation, To increase ROM, To improve nutrient delivery to tissue, To increase oxygenation perfusion, To improve muscle performance and motor function, To improve ability to perform ADL's, To increase tolerance to activity/condition/position, To improve performance and independence with ADL's, To decrease level of supervision to perform tasks, To improve ability of physical actions for home/community/work/leisure, To improve gait and locomotor functions, To improve health of tissue, To decrease soft tissue restriction, To increase fle xibility/ROM, To improve safety with gait Therapeutic Exercise to Include: Strength training, Endurance training, Flexibilty training, Gait and locomotor training, Neuromotor development, Passive ROM, Active ROM, Dynamic Lumbar Stabilization For the Purpose of:: To decrease pain, To decrease swelling/inflammation, To increase ROM, To improve nutrient delivery to tissue, To increase oxygenation perfusion, To improve muscle performance and motor function, To improve ability to perform ADL's, To increase tolerance to activity/condition/position, To improve performance and independence with ADL's, To improve ability of physical actions for home/community/work/leisure, To improve gait and locomotor functions, To improve health of tissue, To decrease soft tissue restriction, To increase flexibility/ROM, To improve safety with gait Functional Training to Include: Gait training For the Purpose of:: To improve gait and locomotor functions Manual Therapy Techniques to Include: Mobilization, Passive ROM For the Purpose of:: To decrease pain, To decrease swelling/inflammation, To increase ROM, To improve nutrient delivery to tissue, To improve muscle performance and motor function Thank you for the opportunity to evaluate your patient. For Medicare and Medicare HMO plans, please review the plan of care and approve it. It will need to be FAXED BACK to us at [phone] for Medicare purposes. For Medicare only, by signing this I certify the plan of care. Please let me know if there are questions or concerns regarding this plan of care. Physician Signature: _Date:
--- NOTE | 2021-11-09 13:03 | HP.PTREVAL ---
Dr. Josep Lim, DO, It has been my pleasure to treat YULIANA GAGE over the last 2 visits for prehab L TLR DOS will be 10-25-21. Please see the progress note below for an update on the physical therapy plan of care! Subjective: Pt had Home health that ended Sunday. Pt has 3 steps into kitchen and has a railing and doing those just fine and goes up with the R leg first. She is doing HEP: some on the bed and some at the kitchen table and squats etc. She is doing them twice a day. The van picked her up today and she got in it ok. said at her Dr appt that she was doing good. Objective/Function: Gait: walks with standard walker with short stride and almost carrying walker. Switched her to a rolling walker and she moves with more of a normal gait pattern with decrease knee flexion on the L. She has a rolling walker at home and will switch to that. Sitting down she likes to kick L leg out to sit down. When verbally cued she is able to bend knee more to sit down. L knee ext AROM in supine -1 degree from full extension. R knee flexion AROM in supine 91 degrees. Pt is able to walk with a straight cane with verbal cues with walk heel to toe with increase knee flexion. Stairs: up recip at time with 2 hand rails and down with the L leg first. Pt is able to SLR and S/L hip abd on the L X 10. Pt is able to step fw off the 4 inch step using // bars heavily Plan Plan: 2-3X/ week for 4-6 weeks for L knee ROM, functional transfers, stairs, gait training, strengthening of L knee and hip with HEP Balance/Gait/Functional tests - Balance/Special Test Scores Lower Extremity Functional Score: 47 WOMAC Total Score: 48 WOMAC Percentage: 50.0000 Goals Goal 1:: I HEP Goal Time Frame: 4-6 Weeks Goal 2:: Be able to go up and down the steps recip with 1 rail without any signs of weakness or pain Goal Time Frame: 6-8 Weeks Goal 3:: Increase L knee AROM 0-120 degrees knee flexion Goal Time Frame: 6-8 Weeks Goal 4:: Be able to walk with no antalgic gait without an AD Goal Time Frame: 6-8 Weeks Anticipated Interventions Patient/Client Instruction: Educate patient on: Condition, Plan of Care For the Purpose of:: To decrease pain, To decrease swelling/inflammation, To increase ROM, To improve nutrient delivery to tissue, To increase oxygenation perfusion, To improve muscle performance and motor function, To improve ability to perform ADL's, To increase tolerance to activity/condition/position, To improve performance and independence with ADL's, To decrease level of supervision to perform tasks, To improve ability of physical actions for home/community/work/leisure, To improve gait and locomotor functions, To improve health of tissue, To decrease soft tissue restriction, To increase flexibility/ROM, To improve safety with gait Therapeutic Exercise to Include: Strength training, Endurance training, Flexibilty training, Gait and locomotor training, Neuromotor development, Passive ROM, Active ROM, Dynamic Lumbar Stabilization For the Purpose of:: To decrease pain, To decrease swelling/inflammation, To increase ROM, To improve nutrient delivery to tissue, To increase oxygenation perfusion, To improve muscle performance and motor function, To improve ability to perform ADL's, To increase tolerance to activity/condition/position, To improve performance and independence with ADL's, To improve ability of physical actions for home/community/work/leisure, To improve gait and locomotor functions, To improve health of tissue, To decrease soft tissue restriction, To increase flexibility/ROM, To improve safety with gait Functional Training to Include: Gait training For the Purpose of:: To improve gait and locomotor functions Manual Therapy Techniques to Include: Mobilization, Passive ROM For the Purpose of:: To decrease pain, To decrease swelling/inflammation, To increase ROM, To improve nutrient delivery to tissue, To improve muscle performance and motor function Please do not hesitate to contact me at [phone] by phone or if you have questions or concerns regarding this new plan of care! Sincerely, Genia Ellis, MPT
--- NOTE | 2021-12-05 10:41 | HP.PTREVAL_ITS ---
Dr. Josep Lim, DO, It has been my pleasure to treat YULIANA GAGE over the last 11 visits for Left TKR 10/25/21. Please see the progress note below for an update on the physical therapy plan of care! Subjective: Pt reports that going up and down the stairs is still tricky and she can not due then recip. She sees the Dr right after this today. Objective/Function: Gait: walks with decrease L knee flexion and decrease stance time on the L side. Stairs: UP AND DOWN RECIP WITH 2 HAND RAILS WITH MAX CUES THAT IT IS OK TO BEND L KNEE. SHE SHOWS WEAKNESS OF THE L QUAD ECCENTRIC AND CONCENTRIC L knee AROM: 0- 102 degrees L knee flexion Plan Plan: 2-3X/ week for 4-6 weeks for L knee ROM, functional transfers, stairs, gait training, strengthening of L knee and hip with HEP Balance/Gait/Functional tests - Balance/Special Test Scores Lower Extremity Functional Score: 53 WOMAC Total Score: 48 WOMAC Percentage: 50.0000 Goals Goal 1:: I HEP Goal Time Frame: 4-6 Weeks Goal Progress: Goal Met Goal 2:: Be able to go up and down the steps recip with 1 rail without any signs of weakness or pain Goal Time Frame: 6-8 Weeks Goal 3:: Increase L knee AROM 0-120 degrees knee flexion Goal Time Frame: 6-8 Weeks Goal 4:: Be able to walk with no antalgic gait without an AD Goal Time Frame: 6-8 Weeks Goal Progress: Progressing Anticipated Interventions Patient/Client Instruction: Educate patient on: Condition, Plan of Care For the Purpose of:: To decrease pain, To decrease swelling/inflammation, To increase ROM, To improve nutrient delivery to tissue, To increase oxygenation perfusion, To improve muscle performance and motor function, To improve ability to perform ADL's, To increase tolerance to activity/condition/position, To improve performance and independence with ADL's, To decrease level of supervision to perform tasks, To improve ability of physical actions for home/community/work/leisure, To improve gait and locomotor functions, To improve health of tissue, To decrease soft tissue restriction, To increase flexibility/ROM, To improve safety with gait Therapeutic Exercise to Include: Strength training, Endurance training, Flexibilty training, Gait and locomotor training, Neuromotor development, Passive ROM, Active ROM, Dynamic Lumbar Stabilization For the Purpose of:: To decrease pain, To decrease swelling/inflammation, To increase ROM, To improve nutrient delivery to tissue, To increase oxygenation perfusion, To improve muscle performance and motor function, To improve ability to perform ADL's, To increase tolerance to activity/condition/position, To improve performance and independence with ADL's, To improve ability of physical actions for home/community/work/leisure, To improve gait and locomotor functions, To improve health of tissue, To decrease soft tissue restriction, To increase flexibility/ROM, To improve safety with gait Functional Training to Include: Gait training For the Purpose of:: To improve gait and locomotor functions Manual Therapy Techniques to Include: Mobilization, Passive ROM For the Purpose of:: To decrease pain, To decrease swelling/inflammation, To increase ROM, To improve nutrient delivery to tissue, To improve muscle performance and motor function Please do not hesitate to contact me at [phone] by phone or Fax: if you have questions or concerns regarding this new plan of care! Sincerely, Genia Ellis MPT
--- NOTE | 2021-12-28 17:25 | HP.PTREVAL_ITS ---
Dr. Josep Lim, DO, It has been my pleasure to treat YULIANA GAGE over the last 20 visits for Left TKR 10/25/21. Please see the progress note below for an update on the physical therapy plan of care! Subjective: She is taking 2 Alieve with her 2 Tylenol and fees much better with no pain. She reports that she does NOT have blood clot and has no pain currently. Pt is icing at home as well Objective/Function: Pt is walking and moving much better today. She is able to bend her knee more and get on and off the nu-step a lot better. L knee AROM: flexion 102 degrees. Ext 0 degrees Plan Plan: Do 2 X/ week for additional 2 weeks due to setback. 2-3X/ week for 4-6 weeks for L knee ROM, functional transfers, stairs, gait training, strengthening of L knee and hip with HEP Balance/Gait/Functional tests - Balance/Special Test Scores Lower Extremity Functional Score: 41 WOMAC Total Score: 48 WOMAC Percentage: 50.0000 Goals Goal 1:: I HEP Goal Time Frame: 4-6 Weeks Goal Progress: Goal Met Goal 2:: Be able to go up and down the steps recip with 1 rail without any signs of weakness or pain Goal Time Frame: 6-8 Weeks Goal 3:: Increase L knee AROM 0-120 degrees knee flexion Goal Time Frame: 6-8 Weeks Goal 4:: Be able to walk with no antalgic gait without an AD Goal Time Frame: 6-8 Weeks Goal Progress: Progressing Anticipated Interventions Patient/Client Instruction: Educate patient on: Condition, Plan of Care For the Purpose of:: To decrease pain, To decrease swelling/inflammation, To increase ROM, To improve nutrient delivery to tissue, To increase oxygenation perfusion, To improve muscle performance and motor function, To improve ability to perform ADL's, To increase tolerance to activity/condition/position, To improve performance and independence with ADL's, To decrease level of supervision to perform tasks, To improve ability of physical actions for home/community/work/leisure, To improve gait and locomotor functions, To improve health of tissue, To decrease soft tissue restriction, To increase flexibility/ROM, To improve safety with gait Therapeutic Exercise to Include: Strength training, Endurance training, Flexibilty training, Gait and locomotor training, Neuromotor development, Passive ROM, Active ROM, Dynamic Lumbar Stabilization For the Purpose of:: To decrease pain, To decrease swelling/inflammation, To increase ROM, To improve nutrient delivery to tissue, To increase oxygenation perfusion, To improve muscle performance and motor function, To improve ability to perform ADL's, To increase tolerance to activity/condition/position, To improve performance and independence with ADL's, To improve ability of physical actions for home/community/work/leisure, To improve gait and locomotor functions, To improve health of tissue, To decrease soft tissue restriction, To increase flexibility/ROM, To improve safety with gait Functional Training to Include: Gait training For the Purpose of:: To improve gait and locomotor functions Manual Therapy Techniques to Include: Mobilization, Passive ROM For the Purpose of:: To decrease pain, To decrease swelling/inflammation, To increase ROM, To improve nutrient delivery to tissue, To improve muscle performance and motor function Please do not hesitate to contact me at [phone] by phone or Fax: if you have questions or concerns regarding this new plan of care! Sincerely, Genia Ellis MPT
--- NOTE | 2022-01-03 08:16 | HP.PTDCSUM ---
It has been my pleasure to treat YULIANA GAGE referred by Dr. Josep Lim DO, with the diagnosis of Left TKR 10/25/21 for a total of 20 visit(s). Discharge Date: 01/03/22 Please see the following information for a summary of their discharge status. Subjective: She is taking 2 Alieve with her 2 Tylenol and fees much better with no pain. She reports that she does NOT have blood clot and has no pain currently. Pt is icing at home as well L knee pain Pain Intensity (Out of 10): 0 % Improvement: 85 Objective/Function: Pt is walking and moving much better today. She is able to bend her knee more and get on and off the nu-step a lot better. L knee AROM: flexion 102 degrees. Ext 0 degrees Goal 1:: I HEP Goal Progress: Goal Met Goal 2:: Be able to go up and down the steps recip with 1 rail without any signs of weakness or pain Goal 3:: Increase L knee AROM 0-120 degrees knee flexion Goal 4:: Be able to walk with no antalgic gait without an AD Goal Progress: Progressing Plan: DC PT. Pt feels that she can do her HEP (01-03-2022). 2-3X/ week for 4-6 weeks for L knee ROM, functional transfers, stairs, gait training, strengthening of L knee and hip with HEP Discharge Comments: DC PT to HEP If there are questions or concerns regarding this patient's physical therapy, please feel free to call me at [phone]. Thank you for the referral of this patient. Sincerely, Genia Ellis, MPT Balance/Gait/Functional tests - Balance/Special Test Scores Lower Extremity Functional Score: 41 WOMAC Total Score: 48 WOMAC Percentage: 50.0000
== END 2021-12-28 19:00 | disposition home or self-care (01) ==
LOC: PT 11:30
PROVIDERS: PCP Internal Medicine; Referring Provider Orthopaedic Surgery; Visit Provider Orthopaedic Surgery
DX: Z96.652 Presence of left artificial knee joint (principal)
CPT/HCPCS: 97110; 97161; 97164; 97530